=== PATIENT | female | born 1995 | race Caucasian/White ===

== ENCOUNTER 2017-10-19 05:36 | Observation (INO) | payer OTHER ==
[2017-10-19] VITALS (7 sets, daily range): BP systolic 112–134; BP diastolic 72–84; PULSE 61–99; TEMP 36.5–36.9; O2SAT 90–100; Ht 154.9 cm; Wt 63.6 kg
[~2017-10-19] VITALS: Ht 154.9 cm; Wt 63.6 kg
[2017-10-19] MEDS ORDERED: ONDANSETRON INJ 2 MG/ML 2 ML VIAL IV STA ×2 (06:05→07:42)
[2017-10-19] MEDS ORDERED: SODIUM CHLORIDE 0.9% 1000ML 1,000 ML IV ONE (06:15)
[2017-10-19] MEDS ORDERED: MoRPHine SULFATE 4 MG/ML 1 ML CARP\\VIAL IV ONE (06:15)
[2017-10-19 06:16] LABS: BASO % 0.1 %; BASO ABS # 0.01 K/uL (0-0.2); EOS % 1.5 %; HEMATOCRIT 43.5 % (37-47); HEMOGLOBIN 14.8 g/dL (12.0-16.0); IG# 0.01 K/uL (0.00-0.02); LYMPH % 49.5 %; LYMPH ABS # 3.35 K/uL (1.2-3.4); MEAN CELL VOLUME 82.4 fL (80-100); MEAN PLATELET VOLUME 10.3 fL (7.4-10.4); MONO % 5.2 %; MONO ABS # 0.35 K/uL (0.11-0.59); NEUT % 43.6 %; NEUT ABS # 2.95 K/uL (1.4-6.5); PLATELET COUNT 208 K/uL (130-400); RED CELL DISTRIBUTION WIDTH CV 12.8 % (11.5-14.5); RED CELL DISTRIBUTION WIDTH SD 38.4 fL (36.4-46.3); WHITE BLOOD COUNT 6.77 K/uL (4.8-10.8)
[2017-10-19] MEDS ORDERED: OPTIRAY 320 IV PRN (06:30)
[2017-10-19 06:33] LABS: ALBUMIN 3.9 gm/dl (3.4-5.0); CALCIUM 9.6 mg/dl (8.5-10.1); CREATININE 0.73 mg/dl (0.60-1.20); POTASSIUM 3.5 mmol/L (3.5-5.1)
[2017-10-19] MEDS ORDERED: BCPILLS PO (06:33)
--- NOTE | 2017-10-19 07:06 | DIAGNOSTIC IMAGING REPORT ---
PELVIC COMPLETE NON OB CLINICAL HISTORY: 21 years-old Female presenting with RLQ abd pain. Not sexually active. Trans abd please. . TECHNIQUE: Real-time grayscale and color and spectral Doppler ultrasound imaging of the pelvis was performed using a transabdominal probe. COMPARISON: None. FINDINGS: Uterus: Normal. Anteverted. The uterus measures 8.1 x 2.6 x 3.7 cm. Endometrial stripe measures 5 mm in thickness. Endometrium normal-appearing. Cervix normal. Right adnexa: Right ovary normal. Right ovary measures 2.6 x 1.4 x 1.8 cm. Normal color Doppler flow and arterial and venous waveforms within the ovarian parenchyma. Left adnexa: Left ovary normal. Left ovary measures 2.9 x 1.6 x 2.1 cm. Normal color Doppler flow and arterial and venous waveforms within the ovarian parenchyma. Other: No free fluid. IMPRESSION: No significant abnormality identified within the pelvis. No evidence of ovarian torsion. Electronically signed by: Tim Mathew M.D. 10/19/2017 7:05 AM Dictated Date/Time: 10/19/2017 7:04 AM
--- NOTE | 2017-10-19 09:37 | DIAGNOSTIC IMAGING REPORT ---
CT ABD/PELVIS IV AND ORAL CONT CLINICAL HISTORY: Right lower quadrant abdominal pain. Nausea. COMPARISON STUDY: None. TECHNIQUE: Following the IV administration of 94 mL of Optiray-320, CT scan of the abdomen and pelvis was performed from the lung bases to the proximal femurs. Images are reviewed in the axial, sagittal, and coronal planes. IV contrast was administered without complication. A dose lowering technique was utilized adhering to the principles of ALARA. CT DOSE: 312.27 mGy.cm FINDINGS: Lower chest: The heart is normal in size and configuration, without pericardial effusion. The lung bases and pleural spaces are clear. Liver: The contrast-enhanced liver is normal in size, contour, and attenuation. There is no intrahepatic biliary ductal dilatation. The hepatic veins and portal veins are patent. Gallbladder: Unremarkable. Spleen: Normal in size and attenuation. Pancreas: Unremarkable. Adrenal glands: Unremarkable. Kidneys: There is a 17 mm left renal cyst. Bowel: There are no transition zones indicate bowel obstruction. There is no evidence of acute diverticulitis. The appendix is mildly dilated measuring 8 mm. The appendix however is filled with both air and contrast and is therefore felt to be normal. Peritoneum: There is no intraperitoneal free air or abdominal ascites. Vasculature: The abdominal aorta is normal in course and caliber. Adenopathy: Minimally prominent ileocolic lymph nodes, likely reactive Pelvic viscera: The bladder, and pelvic viscera are unremarkable. Skeletal structures: No destructive osseous lesions are seen. IMPRESSION: 1. No evidence of bowel obstruction. No evidence of free air 2. The appendix although mildly enlarged demonstrates areas and contrast within the lumen. The appendix is therefore felt to be normal. 3. Minimally prominent ileocolic lymph nodes likely reactive Electronically signed by: Wilbert Ochoa M.D. 10/19/2017 9:35 AM Dictated Date/Time: 10/19/2017 9:18 AM
[2017-10-19] MEDS: SODIUM CHLORIDE 0.9% 1000ML 1,000 ML IV SCH ×2 (10:41→18:17)
[2017-10-19] MEDS ORDERED: MoRPHine SULFATE 2 MG/ML CARP IV PRN ×2 (10:45)
[2017-10-19] MEDS ORDERED: MoRPHine SULFATE 4 MG/ML 1 ML CARP\\VIAL IV PRN (10:45)
[2017-10-19] MEDS ORDERED: IV FLUIDS COMPLETED PRN (11:00)
[2017-10-19] MEDS ORDERED: CEFOXITIN IV 2,000 MG in DEXTROSE 5% 50ML 50 ML IV SCH (11:15)
--- NOTE | 2017-10-19 11:15 | History and Physical ---
History & Physical Date & Time of Service: Oct 19, 2017 at 10:45 Chief Complaint: Abd Pain Rlq Primary Care Physician: No Doctor, Assigned History of Present Illness Source: patient Myriam is a pleasant 21 year-old [employer] student who presented to emergency room this morning with complaint of sudden abdominal pain that woke her up last night. Pain began around the umbilicus and then radiated down to the right side. Sharp/stabbing pain in nature. States she has dull aching pain in the right abdomen all week but would come and go. Associated nausea this morning but no vomiting. No changes in bowel habits, diarrhea, constipation, or blood in stools. Denies fever, chest pain, shortness of breath, difficulty breathing , difficulty urinating, dysuria, urinary frequency, blood in urine, abnormal vaginal bleeding or discharge. Does not get menstrual periods with control pills. Work up in the ER showed no leukocytosis. Pelvic ultrasound showed no abnormalities. CT scan with oral contrast showed mildly dilated appendix at 8 mm however contrast and air seen in appendix which is considered normal. Past Medical/Surgical History No significant past medical history Surgical History: [place] teeth extraction Social History Smoking Status: Never Smoker Allergies Coded Allergies: No Known Allergies (Unverified , 10/19/17) Home Medications Scheduled Control Pills ( Control Pills), 1 TAB PO DAILY Review of Systems Constitutional: + chills, + sweats, No fever Respiratory: No shortness of breath, No dyspnea on exertion Cardiovascular: No chest pain Abdomen: + pain, + nausea, No vomiting, No diarrhea Genitourinary - Female: No dysuria, No urinary frequency, No urinary urgency, No urinary incontinence, No urinary retention, No hematuria Hematologic / Lymphatic: No abnormal bleeding/bruising Integumentary: No rash Physical Exam Vital Signs Date Time Temp Pulse Resp B/P (MAP) Pulse Ox O2 Delivery O2 Flow Rate FiO2 10/19/17 09:56 82 18 128/60 100 Room Air 10/19/17 08:37 84 18 130/64 99 Room Air 10/19/17 07:08 81 18 147/90 98 Room Air 10/19/17 05:48 36.7 100 18 145/93 97 Room Air General Appearance: WD/WN, no apparent distress Eyes: sclerae normal ENT: hearing grossly normal Neck: trachea midline Respiratory/Chest: lungs clear, normal breath sounds, no respiratory distress, no accessory muscle use Cardiovascular: regular rate, rhythm, no murmur Abdomen/GI: soft, no organomegaly, no pulsatile mass, + tenderness (RLQ on deep palpation, no rigidity or peritonitis) Back: normal inspection Extremities/Musculoskelatal: normal inspection Neurologic/Psych: alert, normal mood/affect, oriented x 3 Skin: normal color, warm/dry, no rash Diagnostics Laboratory Results Results Past 24 Hours Test 10/19/17 05:55 10/19/17 06:00 Range/Units Urine Color YELLOW Urine Appearance TURBID CLEAR Urine pH 6.0 4.5-7.5 Urine Specific [place] 1.025 1.000-1.030 Urine Protein NEG NEG Urine Glucose (UA) NEG NEG Urine Ketones NEG NEG Urine Occult Blood TRACE NEG Urine Nitrite NEG NEG Urine Bilirubin NEG NEG Urine Urobilinogen NEG NEG Urine Leukocyte Esterase LARGE NEG Urine WBC (Auto) >30 0-5 /hpf Urine RBC (Auto) 5-10 0-4 /hpf Urine Hyaline Casts (Auto) 1-5 0-5 /lpf Urine Epithelial Cells (Auto) >30 0-5 /lpf Urine Bacteria (Auto) 4+ NEG Urine Pathogenic Casts 0 /lpf Urine Yeast (Auto) NONE PRSENT Urine Test NEG NEG White Blood Count 6.77 4.8-10.8 K/uL Red Blood Count 5.28 4.2-5.4 M/uL Hemoglobin 14.8 12.0-16.0 g/dL Hematocrit 43.5 37-47 % Mean Corpuscular Volume 82.4 80-100 fL Mean Corpuscular Hemoglobin 28.0 25-34 pg Mean Corpuscular Hemoglobin Concent 34.0 32-36 g/dl Platelet Count 208 130-400 K/uL Mean Platelet Volume 10.3 7.4-10.4 fL Neutrophils (%) (Auto) 43.6 % Lymphocytes (%) (Auto) 49.5 % Monocytes (%) (Auto) 5.2 % Eosinophils (%) (Auto) 1.5 % Basophils (%) (Auto) 0.1 % Neutrophils # (Auto) 2.95 1.4-6.5 K/uL Lymphocytes # (Auto) 3.35 1.2-3.4 K/uL Monocytes # (Auto) 0.35 0.11-0.59 K/uL Eosinophils # (Auto) 0.10 0-0.5 K/uL Basophils # (Auto) 0.01 0-0.2 K/uL RDW Standard Deviation 38.4 36.4-46.3 fL RDW Coefficient of Variation 12.8 11.5-14.5 % Immature Granulocyte % (Auto) 0.1 % Immature Granulocyte # (Auto) 0.01 0.00-0.02 K/uL Sodium Level 139 136-145 mmol/L Potassium Level 3.5 3.5-5.1 mmol/L Chloride Level 107 98-107 mmol/L Carbon Dioxide Level 25 21-32 mmol/L Anion Gap 7.0 3-11 mmol/L Blood Urea Nitrogen 12 7-18 mg/dl Creatinine 0.73 0.60-1.20 mg/dl Est Creatinine Clear Calc Drug Dose 105.6 ml/min Estimated GFR () 136.5 Estimated GFR (Non- 117.7 BUN/Creatinine Ratio 16.5 10-20 Random Glucose 97 70-99 mg/dl Calcium Level 9.6 8.5-10.1 mg/dl Total Bilirubin 0.2 0.2-1 mg/dl Aspartate Amino Transf (AST/SGOT) 12 15-37 U/L Alanine Aminotransferase (ALT/SGPT) 25 12-78 U/L Alkaline Phosphatase 57 45-117 U/L Total Protein 8.0 6.4-8.2 gm/dl Albumin 3.9 3.4-5.0 gm/dl Globulin 4.1 2.5-4.0 gm/dl Albumin/Globulin Ratio 1.0 0.9-2 Lipase 178 73-393 U/L Microbiology Results 10/19/17 Urine Culture, Received Pending Diagnostic Radiology PELVIC COMPLETE NON OB CLINICAL HISTORY: 21 years-old Female presenting with RLQ abd pain. Not sexually active. Trans abd please. . TECHNIQUE: Real-time grayscale and color and spectral Doppler ultrasound imaging of the pelvis was performed using a transabdominal probe. COMPARISON: None. FINDINGS: Uterus: Normal. Anteverted. The uterus measures 8.1 x 2.6 x 3.7 cm. Endometrial stripe measures 5 mm in thickness. Endometrium normal-appearing. Cervix normal. Right adnexa: Right ovary normal. Right ovary measures 2.6 x 1.4 x 1.8 cm. Normal color Doppler flow and arterial and venous waveforms within the ovarian parenchyma. Left adnexa: Left ovary normal. Left ovary measures 2.9 x 1.6 x 2.1 cm. Normal color Doppler flow and arterial and venous waveforms within the ovarian parenchyma. Other: No free fluid. IMPRESSION: No significant abnormality identified within the pelvis. No evidence of ovarian torsion. CT ABD/PELVIS IV AND ORAL CONT CLINICAL HISTORY: Right lower quadrant abdominal pain. Nausea. COMPARISON STUDY: None. TECHNIQUE: Following the IV administration of 94 mL of Optiray-320, CT scan of the abdomen and pelvis was performed from the lung bases to the proximal femurs. Images are reviewed in the axial, sagittal, and coronal planes. IV contrast was administered without complication. A dose lowering technique was utilized adhering to the principles of ALARA. CT DOSE: 312.27 mGy.cm FINDINGS: Lower chest: The heart is normal in size and configuration, without pericardial effusion. The lung bases and pleural spaces are clear. Liver: The contrast-enhanced liver is normal in size, contour, and attenuation. There is no intrahepatic biliary ductal dilatation. The hepatic veins and portal veins are patent. Gallbladder: Unremarkable. Spleen: Normal in size and attenuation. Pancreas: Unremarkable. Adrenal glands: Unremarkable. Kidneys: There is a 17 mm left renal cyst. Bowel: There are no transition zones indicate bowel obstruction. There is no evidence of acute diverticulitis. The appendix is mildly dilated measuring 8 mm. The appendix however is filled with both air and contrast and is therefore felt to be normal. Peritoneum: There is no intraperitoneal free air or abdominal ascites. Vasculature: The abdominal aorta is normal in course and caliber. Adenopathy: Minimally prominent ileocolic lymph nodes, likely reactive Pelvic viscera: The bladder, and pelvic viscera are unremarkable. Skeletal structures: No destructive osseous lesions are seen. IMPRESSION: 1. No evidence of bowel obstruction. No evidence of free air 2. The appendix although mildly enlarged demonstrates areas and contrast within the lumen. The appendix is therefore felt to be normal. 3. Minimally prominent ileocolic lymph nodes likely reactive Impression Assessment and Plan 21 year-old female with complaint of abdominal pain that suddenly woke her up last night around the umbilicus with radiation to the RLQ with associated nausea. Mild right sided abdominal pain that would come and go for the past week. CT scan showing dilated appendix at 8 mm. No leukocytosis. Pelvic ultrasound unremarkable. Abdominal examination proves RLQ tenderness on palpation no peritonitis. Examination and history consistent with early acute appendicitis. Plan: Plan to admit patient for observation and then laparoscopic appendectomy this afternoon. Informed patient of procedure and risks, informed consent obtained. IV fluids, NPO, IV pain medication and Zofran as needed Will be given 2gms Cefoxitin pre-operatively Dr. Ramon has seen and examined patient, agrees with above VTE Prophylaxis VTE Risk Assessment Done? Y/N: Yes Risk Level: Low
[2017-10-19] MEDS ORDERED: FENTANYL CITRATE INJ 50 MCG/1 ML 2 ML VIAL ONE ×4 (13:56→16:19)
[2017-10-19] MEDS ORDERED: MIDAZOLAM HCL 1 MG/ML 2ML VIAL ONE (13:56)
[2017-10-19] MEDS ORDERED: ONDANSETRON INJ 2 MG/ML 2 ML VIAL ONE (14:42)
[2017-10-19] MEDS ORDERED: PROPOFOL IV EMULSION 10 MG/ML 20 ML VIAL IV ONE (14:42)
[2017-10-19] MEDS ORDERED: LIDOCAINE HCL 2% 2 ML VIAL (20MG/ML) ONE (14:42)
[2017-10-19] MEDS ORDERED: BUPIVACAINE 0.5 % 5 MG/1 ML MPF 30ML VIAL ONE (14:51)
[2017-10-19] MEDS ORDERED: BACITRACIN OINT 15 GM TUBE ONE (14:52)
--- NOTE | 2017-10-19 14:52 | History & Physical Bridge Note ---
H&P Re-Evaluation Bridge Note: I have examined the patient, reviewed the History & Physical and in the interval since the performance of the History & Physical I have noted the following changes of clinical significance: No changes noted
[2017-10-19] MEDS ORDERED: ACETAMINOPHEN 1000 MG/100 ML IV IV ONE (15:01)
[2017-10-19] MEDS ORDERED: LIDOCAINE HCL 1% 20 ML VIAL ONE (15:08)
[2017-10-19] MEDS ORDERED: PROMETHAZINE HCL INJ 12.5 MG in SODIUM CHLORIDE 0.9% 50ML 50 ML IV PRN (15:30)
[2017-10-19] MEDS ORDERED: HYDROmorphone INJ 0.5 MG/0.5 ML SYR IV PRN (15:30)
[2017-10-19] MEDS ORDERED: EpHEDrine SULFATE INJ 50 MG/ML AMP IV PRN (15:30)
[2017-10-19] MEDS ORDERED: ATROPINE SULFATE 0.1 MG/ML 5ML SYR IV PRN (15:30)
[2017-10-19] MEDS ORDERED: ONDANSETRON INJ 2 MG/ML 2 ML VIAL IV PRN (15:30)
[2017-10-19] MEDS ORDERED: DEXAMETHASONE SOD INJ 4 MG/ML VIAL ONE (15:35)
[2017-10-19] MEDS ORDERED: NEOSTIGMINE METHYLSULFATE 5 MG/5 ML SYR ONE (15:58)
[2017-10-19] MEDS ORDERED: PHENYLEPHRINE 100MCG/ML 5ML SYR ONE (15:58)
[2017-10-19] MEDS ORDERED: GLYCOPYRROLATE INJ 0.2 MG/ML VIAL ONE (15:58)
--- NOTE | 2017-10-19 16:16 | [facility] Post Operative Brief Note ---
Immediate Operative Summary Operative Date Oct 19, 2017. Pre-Operative Diagnosis acute appendicitis Post-Operative Diagnosis SAME Procedure(s) Performed laparoscopic appendectomy Surgeon Dr. Sarah Ramon Site Acquisition Specialist Surgeon(s) pyrotechnics press tender Estimated Blood Loss 5ML Findings Consistent with Post-Op Diagnosis acute appendicitis Fluids (cc crystalloids) 1000ml Specimens A. appendix (permanent) Drains None Anesthesia Type General Complication(s) none Disposition Accompanied Pt To Recover: yes Disposition: Recovery Room / PACU
[2017-10-19] MEDS: FENTANYL CITRATE INJ 50 MCG/1 ML 2 ML VIAL IV PRN ×3 (16:37→16:47)
--- NOTE | 2017-10-19 16:40 | EMERGENCY ROOM VISIT NOTE ---
ED Visit Note First contact with patient: 07:41 Emergency Department Note Ms. Worthy's care was transferred to ut by Mr. Tomas Vargas PA-C at the end of his shift pending a pelvic ultrasound and abdominal CT results. In summary patient had an acute onset of right lower quadrant pain. All her laboratory testing was returned and she had a normal CBC, CMP, lipase and a negative test. Her urinalysis showed a large amount of leukoesterase , blood, white blood cells, epithelial cells and 4+ bacteria. On my initial evaluation of the patient she reports her pain was under control and rated her discomfort 4/10. She was offered pain medications and refused. On her physical examination she had mild tenderness in the periumbilical area and the upper lateral border of the right lower quadrant. There was no tenderness or guarding over McBurney's point. ED Course: Patient is assessed as noted above. Laboratory Testing: Test 10/19/17 05:55 10/19/17 06:00 Range/Units Urine Color YELLOW Urine Appearance TURBID CLEAR Urine pH 6.0 4.5-7.5 Urine Specific [place] 1.025 1.000-1.030 Urine Protein NEG NEG Urine Glucose (UA) NEG NEG Urine Ketones NEG NEG Urine Occult Blood TRACE NEG Urine Nitrite NEG NEG Urine Bilirubin NEG NEG Urine Urobilinogen NEG NEG Urine Leukocyte Esterase LARGE NEG Urine WBC (Auto) >30 0-5 /hpf Urine RBC (Auto) 5-10 0-4 /hpf Urine Hyaline Casts (Auto) 1-5 0-5 /lpf Urine Epithelial Cells (Auto) >30 0-5 /lpf Urine Bacteria (Auto) 4+ NEG Urine Pathogenic Casts 0 /lpf Urine Yeast (Auto) NONE PRSENT Urine Test NEG NEG White Blood Count 6.77 4.8-10.8 K/uL Red Blood Count 5.28 4.2-5.4 M/uL Hemoglobin 14.8 12.0-16.0 g/dL Hematocrit 43.5 37-47 % Mean Corpuscular Volume 82.4 80-100 fL Mean Corpuscular Hemoglobin 28.0 25-34 pg Mean Corpuscular Hemoglobin Concent 34.0 32-36 g/dl Platelet Count 208 130-400 K/uL Mean Platelet Volume 10.3 7.4-10.4 fL Neutrophils (%) (Auto) 43.6 % Lymphocytes (%) (Auto) 49.5 % Monocytes (%) (Auto) 5.2 % Eosinophils (%) (Auto) 1.5 % Basophils (%) (Auto) 0.1 % Neutrophils # (Auto) 2.95 1.4-6.5 K/uL Lymphocytes # (Auto) 3.35 1.2-3.4 K/uL Monocytes # (Auto) 0.35 0.11-0.59 K/uL Eosinophils # (Auto) 0.10 0-0.5 K/uL Basophils # (Auto) 0.01 0-0.2 K/uL RDW Standard Deviation 38.4 36.4-46.3 fL RDW Coefficient of Variation 12.8 11.5-14.5 % Immature Granulocyte % (Auto) 0.1 % Immature Granulocyte # (Auto) 0.01 0.00-0.02 K/uL Sodium Level 139 136-145 mmol/L Potassium Level 3.5 3.5-5.1 mmol/L Chloride Level 107 98-107 mmol/L Carbon Dioxide Level 25 21-32 mmol/L Anion Gap 7.0 3-11 mmol/L Blood Urea Nitrogen 12 7-18 mg/dl Creatinine 0.73 0.60-1.20 mg/dl Est Creatinine Clear Calc Drug Dose 105.6 ml/min Estimated GFR () 136.5 Estimated GFR (Non- 117.7 BUN/Creatinine Ratio 16.5 10-20 Random Glucose 97 70-99 mg/dl Calcium Level 9.6 8.5-10.1 mg/dl Total Bilirubin 0.2 0.2-1 mg/dl Aspartate Amino Transf (AST/SGOT) 12 15-37 U/L Alanine Aminotransferase (ALT/SGPT) 25 12-78 U/L Alkaline Phosphatase 57 45-117 U/L Total Protein 8.0 6.4-8.2 gm/dl Albumin 3.9 3.4-5.0 gm/dl Globulin 4.1 2.5-4.0 gm/dl Albumin/Globulin Ratio 1.0 0.9-2 Lipase 178 73-393 U/L Microbiology Results 10/19/17 Urine Culture: Pending Pelvic Ultrasound: Was reviewed by myself and read by the radiologist showing no significant abnormalities within the pelvis. No evidence of ovarian torsion or ovarian cyst rupture. Contrast Abdominal/Pelvic CT: Was reviewed by myself and read by the radiologist showing no evidence of bowel obstruction or free air. The appendix although mildly enlarge demonstrates contrast with thin the lumen and was felt to be normal-appearing by the radiologist. Also noted was mildly prominent ileocolic lymph nodes that were felt to be reactive. During my care of the patient she was still drinking her contrast for her CT and reported that she was becoming more nauseated and she was given 4 mg of Zofran IV. Once again she was offered pain medications and refused. Patient's case was reviewed with general surgery, Marissa Patel PA-C; she independently assessed the patient, reviewed the case with her attending surgeon , Dr. Ramon, and felt that she should have an appendectomy. Patient was informed of this recommendation and accepted the recommendation. Clinical Impression: Acute appendicitis. Disposition and Plan: Patient be taken to the surgical suite for an appendectomy ; please see Dr. Ramon's orders for continued care and treatment.
--- NOTE | 2017-10-19 17:01 | Anesthesiology Progress Note ---
Anesthesia Post Op Note Date & Time Oct 19, 2017 at 17:01 Vital Signs Pain Intensity: 3 Vital Signs Past 12 Hours Date Time Temp Pulse Resp B/P (MAP) Pulse Ox O2 Delivery O2 Flow Rate FiO2 10/19/17 16:57 36.5 10/19/17 16:56 119/97 10/19/17 16:55 79 15 10/19/17 16:55 77 15 100 10/19/17 16:51 139/96 10/19/17 16:50 86 13 10/19/17 16:50 86 13 100 10/19/17 16:46 136/93 10/19/17 16:45 78 16 100 10/19/17 16:45 79 16 10/19/17 16:41 129/83 10/19/17 16:40 84 20 10/19/17 16:40 85 20 100 10/19/17 16:36 146/90 10/19/17 16:35 97 13 99 10/19/17 16:35 96 13 10/19/17 16:31 137/99 10/19/17 16:30 108 15 99 10/19/17 16:30 108 15 10/19/17 16:29 143/91 10/19/17 16:20 36.1 102 14 125/87 100 Oxymask 7 10/19/17 11:57 36.8 61 16 114/81 90 Room Air 10/19/17 11:45 89 16 115/74 99 10/19/17 11:14 89 16 115/74 99 Room Air 10/19/17 09:56 82 18 128/60 100 Room Air 10/19/17 08:37 84 18 130/64 99 Room Air 10/19/17 07:08 81 18 147/90 98 Room Air 10/19/17 05:48 36.7 100 18 145/93 97 Room Air Notes Mental Status: alert / awake / arousable, participated in evaluation Pt Amnestic to Procedure: Yes Nausea / Vomiting: adequately controlled Pain: adequately controlled Airway Patency, RR, SpO2: stable & adequate BP & HR: stable & adequate Hydration State: stable & adequate Anesthetic Complications: no major complications apparent
[2017-10-19] MEDS ORDERED: NURSING VERBAL MED ORDER ONE (18:30)
[2017-10-19] MEDS: TRAMADOL HCL 50 MG TAB PO PRN (19:49)
--- NOTE | 2017-10-19 20:03 | OPERATIVE REPORT ---
DATE OF OPERATION: 10/19/2017 PREOPERATIVE DIAGNOSIS: Acute appendicitis. POSTOPERATIVE DIAGNOSIS: Same. PROCEDURE: Laparoscopic appendectomy. SURGEON: Jadyn Ramon MD. ANESTHESIA: General. ESTIMATED BLOOD LOSS: About 5 mL. FINDINGS: Acute appendicitis. COMPLICATIONS: None. INDICATIONS FOR THE PROCEDURE: This is a 21-year-old female who presented to the ED with right lower quadrant pain. The patient had a CT scan diagnosed of acute appendicitis. The patient will be required to do laparoscopic appendectomy, possible open. I did talk to the patient about the benefit and risk, alternate procedure. I indicated the risks may include but not limited such as bleeding, infection, abscess, injury to bowel. The patient understands. She signed informed consent and I answered all questions. DETAILS OF PROCEDURE: We brought the patient to the OR, put the patient on the supine position on the OR table. The patient received SCD on bilateral legs to prevent DVT. Also, the patient received 2 gram cefoxitin IV for prophylactic antibiotic. The patient received general anesthesia without difficulty. The abdomen was prepped and draped in routine sterile fashion. After a timeout, I injected local anesthesia by using 1% lidocaine mixed with 0.5% Marcaine just above umbilicus. I made a small incision just above umbilicus, opened fascia and opened peritoneum under direct vision. I put a Sean trocar in, connected to CO2 to create pneumoperitoneum. Flow rate at 6 liter per minute. Pressure not more than 14 mmHg. Once we got a nice pneumoperitoneum, we put the camera in to look around, the abdomen showed normal findings on the stomach, small bowel, large bowel; however, the appendix showed slight enlarged appendix with some inflammation on the appendix, conformed diagnosis of acute appendicitis. Then I put another two 5 mm trocar on the left lower quadrant area and mobilized the appendix, taken down the appendiceal by using harmonic. Rechecked, no active bleeding. Then I used Endo-KYRA staple to transect the base of the appendix, rechecked no active bleeding, no leak. Then I removed the appendix specimen through the catcher bag. Then we reinserted Sean trocar in connected to CO2 to create pneumoperitoneum again to look around the abdomen, no active bleeding, no leak from the staple line and we removed all trocars under direct vision. No active bleeding from trocar sites. The pneumoperitoneum was released. Then I closed the umbilical incision, fascial layer by using #1 Vicryl [id number] x2, closed subcutaneous layer by using 2-0 Vicryl, closed skin by using 4-0 Vicryl continuous running. Closed another two 5 mm trocar site skin only by using 4-0 Vicryl. Then we put the dressing on. The patient tolerated the procedure well. All the instrument, needle and sponge count correct x2 at the end of case. The patient transferred to recovery room in stable condition. After procedure, I did talk to the patient's mom about the OR finding and procedure we did. She understands. I attest to the content of the Intraoperative Record and any orders documented therein. Any exceptions are noted below. CODY
[2017-10-19] MEDS: ONDANSETRON INJ 2 MG/ML 2 ML VIAL IV PRN (20:25)
[2017-10-19] MEDS: OXYCODONE/ACETAMINOPHEN 5-325 TAB PO PRN (23:33)
[2017-10-20] MEDS: TRAMADOL HCL 50 MG TAB PO PRN ×2 (02:21→10:41)
[2017-10-20 03:42] VITALS: BP 102/66; PULSE 82; TEMP 36.7; O2SAT 95
[2017-10-20] MEDS: SODIUM CHLORIDE 0.9% 1000ML 1,000 ML IV SCH (04:45)
[2017-10-20] MEDS: OXYCODONE/ACETAMINOPHEN 5-325 TAB PO PRN ×2 (05:01→14:01)
[2017-10-20] MEDS ORDERED: CEFOXITIN SOD 2 GM VIAL IV ONE (06:00)
--- NOTE | 2017-10-20 07:32 | EMERGENCY ROOM VISIT NOTE ---
History First contact with patient: 05:50 Chief Complaint: ABDOMINAL PAIN Stated Complaint: ACUTE APPENDICITIS Nursing Triage Summary: Patient reports that she has had abdominal pain all week, woke up this morning with right sided abdominal pain. Patient notes nausea as well. History of Present Illness The patient is a 21 year old female who presents to the Emergency Room with complaints of right lower quadrant abdominal pain for the past several hours. The patient has had vague abdominal pain for the past several days, but it worsened tonight. The patient does not have fever or chills. She is usually healthy. She does not have chest pain, chest tightness, or shortness of breath. She is not sexually active and is not reporting vaginal pain or irritation. The patient does take control and does not get menses. She rates her discomfort a 6/10 that worsens with pressing in the area. Her last meal was about 9 hours ago. Review of Systems More than 10 systems were reviewed and otherwise negative with the exception of history of present illness. Past Medical/Surgical History Medical Problems: (1) Acute appendicitis Family History No pertinent family history Social History Smoking Status: Never Smoker Current/Historical Medications Scheduled Control Pills ( Control Pills), 1 TAB PO DAILY Physical Exam Vital Signs Date Time Temp Pulse Resp B/P (MAP) Pulse Ox O2 Delivery O2 Flow Rate FiO2 10/19/17 09:56 82 18 128/60 100 Room Air 10/19/17 08:37 84 18 130/64 99 Room Air 10/19/17 07:08 81 18 147/90 98 Room Air 10/19/17 05:48 36.7 100 18 145/93 97 Room Air Physical Exam VITALS: Vitals are noted on the nurse's note and reviewed by myself. Vital signs stable. GENERAL: Well-developed, well-nourished, white male, who is in no acute distress and resting comfortably. Patient is cooperative with the examination. NECK: Supple without nuchal rigidity. No lymphadenopathy. No thyromegaly. Cervical spine is nontender. HEART: Regular rate and rhythm without murmurs gallops or rubs. LUNGS: Clear to auscultation bilaterally without wheezes, rales or rhonchi. No retractions or accessory muscle use. ABDOMEN: Positive normal bowel sounds x 4. Soft with positive right lower quadrant tenderness on palpation. No rebound or guarding. No obturator or psoas. MUSCULOSKELETAL: No muscle atrophy, erythema, or edema noted. Full range of motion without joint tenderness in all extremities. Medical Decision & Procedures Laboratory Results 10/19/17 06:00 Red Blood Count 5.28, Mean Corpuscular Volume 82.4, Mean Corpuscular Hemoglobin 28.0, Mean Corpuscular Hemoglobin Concent 34.0, Mean Platelet Volume 10.3, Neutrophils (%) (Auto) 43.6, Lymphocytes (%) (Auto) 49.5, Monocytes (%) (Auto) 5.2, Eosinophils (%) (Auto) 1.5, Basophils (%) (Auto) 0.1, Neutrophils # (Auto) 2.95, Lymphocytes # (Auto) 3.35, Monocytes # (Auto) 0.35, Eosinophils # (Auto) 0.10, Basophils # (Auto) 0.01 10/19/17 06:00 Test 10/19/17 05:55 10/19/17 06:00 Urine Color YELLOW Urine Appearance TURBID (CLEAR) Urine pH 6.0 (4.5-7.5) Urine Specific [place] 1.025 (1.000-1.030) Urine Protein NEG (NEG) Urine Glucose (UA) NEG (NEG) Urine Ketones NEG (NEG) Urine Occult Blood TRACE (NEG) Urine Nitrite NEG (NEG) Urine Bilirubin NEG (NEG) Urine Urobilinogen NEG (NEG) Urine Leukocyte Esterase LARGE (NEG) Urine WBC (Auto) >30 /hpf (0-5) Urine RBC (Auto) 5-10 /hpf (0-4) Urine Hyaline Casts (Auto) 1-5 /lpf (0-5) Urine Epithelial Cells (Auto) >30 /lpf (0-5) Urine Bacteria (Auto) 4+ (NEG) Urine Pathogenic Casts /lpf (0) Urine Yeast (Auto) (NONE PRSENT) Urine Test NEG (NEG) White Blood Count 6.77 K/uL (4.8-10.8) Red Blood Count 5.28 M/uL (4.2-5.4) Hemoglobin 14.8 g/dL (12.0-16.0) Hematocrit 43.5 % (37-47) Mean Corpuscular Volume 82.4 fL (80-100) Mean Corpuscular Hemoglobin 28.0 pg (25-34) Mean Corpuscular Hemoglobin Concent 34.0 g/dl (32-36) Platelet Count 208 K/uL (130-400) Mean Platelet Volume 10.3 fL (7.4-10.4) Neutrophils (%) (Auto) 43.6 % Lymphocytes (%) (Auto) 49.5 % Monocytes (%) (Auto) 5.2 % Eosinophils (%) (Auto) 1.5 % Basophils (%) (Auto) 0.1 % Neutrophils # (Auto) 2.95 K/uL (1.4-6.5) Lymphocytes # (Auto) 3.35 K/uL (1.2-3.4) Monocytes # (Auto) 0.35 K/uL (0.11-0.59) Eosinophils # (Auto) 0.10 K/uL (0-0.5) Basophils # (Auto) 0.01 K/uL (0-0.2) RDW Standard Deviation 38.4 fL (36.4-46.3) RDW Coefficient of Variation 12.8 % (11.5-14.5) Immature Granulocyte % (Auto) 0.1 % Immature Granulocyte # (Auto) 0.01 K/uL (0.00-0.02) Anion Gap 7.0 mmol/L (3-11) Est Creatinine Clear Calc Drug Dose 105.6 ml/min Estimated GFR () 136.5 Estimated GFR (Non- 117.7 BUN/Creatinine Ratio 16.5 (10-20) Calcium Level 9.6 mg/dl (8.5-10.1) Total Bilirubin 0.2 mg/dl (0.2-1) Aspartate Amino Transf (AST/SGOT) 12 U/L (15-37) Alanine Aminotransferase (ALT/SGPT) 25 U/L (12-78) Alkaline Phosphatase 57 U/L (45-117) Total Protein 8.0 gm/dl (6.4-8.2) Albumin 3.9 gm/dl (3.4-5.0) Globulin 4.1 gm/dl (2.5-4.0) Albumin/Globulin Ratio 1.0 (0.9-2) Lipase 178 U/L (73-393) Medications Administered Medications (Trade) Dose Ordered Sig/Buzz Route Start Time Stop Time Status Last Admin Dose Admin Morphine Sulfate (MoRPHine SULFATE INJ) 4 mg NOW ONCE IV 10/19/17 06:15 10/19/17 06:16 DC 10/19/17 06:24 4 MG Ondansetron HCl (Zofran Inj) 4 mg NOW STAT IV 10/19/17 06:05 10/19/17 06:08 DC 10/19/17 06:24 4 MG Sodium Chloride 1,000 ml @ 999 mls/hr Q1H1M ONCE IV 10/19/17 06:15 10/19/17 07:15 DC 10/19/17 06:24 999 MLS/HR Ondansetron HCl (Zofran Inj) 4 mg NOW STAT IV 10/19/17 07:42 10/19/17 07:43 DC 10/19/17 07:48 4 MG Sodium Chloride 1,000 ml @ 100 mls/hr Q10H IV 10/19/17 10:41 11/18/17 10:40 10/20/17 04:45 100 MLS/HR ED Course Physical exam and history were performed. Nursing notes, EMR, and Medication List were personally reviewed. Patient appears to have right lower quadrant abdominal pain for the past several hours. The patient is tender in this area. IV access was established and labs were obtained. Pelvic ultrasound and CT scanning with IV and oral contrast was ordered. The patient remained in stable condition until the time of shift change. The case was discussed with my colleague, Edvin Fernandes PA-C, who will assume care at this time. Results are pending and disposition will be dependent on imaging and blood work findings. Please see Mr. Fernandes's dictation for further patient course, plan, and disposition. The chart was completed utilizing [email or web address] Speech Voice Recognition Software. Grammatical errors, random word insertions, pronoun errors, and incomplete sentences are an occasional consequence of this system due to software limitations, ambient noise, and hardware issues. Any formal questions or concerns about the content, text, or information contained within the body of this dictation should be directly addressed to the provider for clarification. . Medical Decision Differential diagnosis: Etiologies such as [employer] etiology, appendicitis, diverticulitis, PUD, biliary pathology, UTI, pancreatitis, obstruction, mesenteric ischemia, aortic pathology , infections, inflammatory bowel disease, renal colic, as well as others were entertained. Impression Primary Impression: Right lower quadrant abdominal pain Departure Information Dispostion Still a Patient Condition GOOD Referrals No Doctor, Assigned (PCP) Forms HOME CARE DOCUMENTATION FORM, IMPORTANT VISIT INFORMATION Patient Instructions My [facility]
[2017-10-20 07:44] VITALS: BP 107/72; PULSE 60; TEMP 36.6; O2SAT 96
--- NOTE | 2017-10-20 07:54 | Anesthesiology Progress Note ---
Anesthesia Post Op Note Date & Time Oct 20, 2017 at 07:53 Vital Signs Pain Intensity: 7.0 Vital Signs Past 12 Hours Date Time Temp Pulse Resp B/P (MAP) Pulse Ox O2 Delivery O2 Flow Rate FiO2 10/20/17 07:44 36.6 60 16 107/72 (84) 96 Room Air 10/20/17 03:42 36.7 82 16 102/66 (78) 95 Room Air 10/19/17 22:55 36.9 99 16 118/78 (91) 95 Room Air 10/19/17 20:14 36.7 99 18 112/78 (89) 96 Room Air Notes Mental Status: alert / awake / arousable, participated in evaluation Pt Amnestic to Procedure: Yes Nausea / Vomiting: adequately controlled Pain: adequately controlled, improving with treatment Airway Patency, RR, SpO2: stable & adequate BP & HR: stable & adequate Hydration State: stable & adequate Anesthetic Complications: no major complications apparent
[2017-10-20] MEDS: ONDANSETRON INJ 2 MG/ML 2 ML VIAL IV PRN (08:19)
[2017-10-20 10:53] VITALS: BP 110/74; PULSE 56; TEMP 36.8; O2SAT 97
[2017-10-20] MEDS ORDERED: NITR1CAP16 PO (12:28)
[2017-10-20] MEDS ORDERED: OXYC-57 PO (12:28)
[2017-10-20] MEDS ORDERED: ONDA4TAB10 SL (12:28)
--- NOTE | 2017-10-20 12:33 | Discharge Instructions ---
Discharge Instructions Date of Service Oct 20, 2017. Admission Reason for Admission: Acute Appendicitis Discharge Discharge Diagnosis / Problem: same Discharge Goals Goal(s): Decrease discomfort, Improve function Activity Recommendations Activity Limitations: as noted below No heavy lifting over 20 pounds for 3 weeks No strenuous activity until cleared by surgeon No submerging incisions underwater for 2 weeks (no bathing, swimming, or hot tubs) No driving while taking narcotic pain medication or until you are pain free . Instructions / Follow-Up Instructions / Follow-Up You may shower in 3 days. Sponge bath and wash hair in meantime. Try to keep dressings clean and dry. After showering , remove outer dressings. Leave steri strips on incisions for 7 days and then remove. They may fall off on their own that is okay. Walking and light activity is encouraged You will be given prescription for narcotic pain medication (Percocet) as needed for moderate to severe pain. This medication may make you drowsy. You may take extra strength Tylenol or Ibuprofen as needed for mild pain. Take course of antibiotics for UTI, drink plenty of fluids. Follow-up in surgical office in 2 weeks, please call office at [phone] to make an appointment Current Hospital Diet Patient's current hospital diet: Clear Liquid Diet Discharge Diet Recommended Diet: Regular Diet Procedures Procedures Performed: laparoscopic appendectomy Pending Studies Studies pending at discharge: yes List of pending studies: appendix pathology will be reviewed at follow up visit Medical Emergencies . Who to Call and When: Medical Emergencies: If at any time you feel your situation is an emergency, please call 911 immediately. . Non-Emergent Contact Non-Emergency issues call your: Primary Care Provider, Surgeon Call Non-Emergent contact if: you have a fever, temperature is above 101, your pain is not controlled, your pain is worsening, your pain is unusual for you, wound has increased drainage, wound has increased redness, wound has increased pain . "Provider Documentation" section prepared by Marissa Almaraz. . VTE Core Measure Inpt VTE Proph given/why not?: SCD's [place] Drug Monitoring Program Search Results: patient reviewed within database, no issues identified
--- NOTE | 2017-10-20 12:39 | Surgery Progress Note ---
Surgery Progress Note Date of Service Oct 20, 2017. Subjective Post OP Day: 1 (s/p laparoscopic appendectomy) + feeling well, + complaints (moderate pain, controlled with PO Percocet and Tramadol), + ambulating, + pain controlled, + nausea (with percocet), + diet ( tolerated clears, hungry), No chest pain, No SOB, No vomiting Objective Vital Signs: Date Time Temp Pulse Resp B/P (MAP) Pulse Ox O2 Delivery O2 Flow Rate FiO2 10/20/17 10:53 36.8 56 16 110/74 (86) 97 Room Air 10/20/17 07:50 Room Air 10/20/17 07:44 36.6 60 16 107/72 (84) 96 Room Air 10/20/17 03:42 36.7 82 16 102/66 (78) 95 Room Air 10/19/17 22:55 36.9 99 16 118/78 (91) 95 Room Air 10/19/17 20:14 36.7 99 18 112/78 (89) 96 Room Air 10/19/17 19:40 Room Air 10/19/17 19:19 36.6 88 18 121/72 (88) 96 Nasal Cannula 2.5 10/19/17 18:01 36.5 90 18 116/80 (92) 99 Nasal Cannula 2.5 10/19/17 17:36 36.5 81 18 115/77 (90) 100 Nasal Cannula 2.5 10/19/17 17:05 100 Nasal Cannula 3.0 10/19/17 17:05 36.9 98 16 134/84 (101) 100 Nasal Cannula 3.0 10/19/17 16:57 36.5 10/19/17 16:56 119/97 10/19/17 16:55 79 15 10/19/17 16:55 77 15 100 10/19/17 16:51 139/96 10/19/17 16:50 86 13 10/19/17 16:50 86 13 100 10/19/17 16:46 136/93 10/19/17 16:45 78 16 100 10/19/17 16:45 79 16 10/19/17 16:41 129/83 10/19/17 16:40 84 20 10/19/17 16:40 85 20 100 10/19/17 16:36 146/90 10/19/17 16:35 97 13 99 10/19/17 16:35 96 13 10/19/17 16:31 137/99 10/19/17 16:30 108 15 99 10/19/17 16:30 108 15 10/19/17 16:29 143/91 10/19/17 16:20 36.1 102 14 125/87 100 Oxymask 7 General Appearance: WD/WN, no apparent distress Head: normocephalic, atraumatic Neck: trachea midline Respiratory/Chest: lungs clear, normal breath sounds, no respiratory distress, no accessory muscle use Cardiovascular: regular rate, rhythm, no murmur Abdomen: normal bowel sounds, non distended, soft, no organomegaly, no pulsatile mass, + tenderness (at incision sites, appropriate post op) Incision(s): clean, dry (dressings clean and dry, incisions not inspected) Assessment & Plan POD # 1 s/p laparoscopic appendectomy -vitals stable - moderate pain, controlled with PO meds - urinating and ambulating Plan: Discharge home today after lunch Discharge instructions reviewed Rx for PO Percocet prn pain, Zofran prn nausea, and Macrobid x 5 days for UTI ( urine culture pending) Follow up surgical office [address] Ramon you agrees with above
[2017-10-20 13:27] VITALS: BP 110/74; PULSE 56; TEMP 36.8; O2SAT 97
--- NOTE | 2017-10-23 14:49 | Discharge Summary ---
Discharge Summary Dates Admission Date / Time: Oct 19, 2017 at 10:44 Discharge Date: Oct 20, 2017 Dispostion / Condition Discharge Disposition: Home Condition at Discharge: Good Principal Diagnosis (1) RLQ abdominal pain (2) Acute appendicitis (3) UTI (urinary tract infection) Problem List (1) No significant active problems Consultations / Procedures Consultations: None Procedures: Laparoscopic appendectomy Pending Studies / Follow-Up Appendix pathology- will be reviewed at follow up visit Medication Reconciliation New Medications: Nitrofurantoin Monohyd Macro (Macrobid) 100 Mg Cap 1 CAP PO BID for 5 Days, #10 CAP Ondasetron Odt (Zofran Odt) 4 Mg Tab 4 MG SL Q6H PRN for Nausea, #15 TAB Oxycodone/Acetaminophen 5MG/325MG (Percocet 5MG/325MG) Tab 1 TABLET PO Q4H PRN for Pain, #18 TAB Continued Medications: Control Pills ( Control Pills) Tab 1 TAB PO DAILY, TAB Admission HPI Per the Admitting provider: Myriam is a pleasant 21 year-old [employer] student who presented to emergency room this morning with complaint of sudden abdominal pain that woke her up last night. Pain began around the umbilicus and then radiated down to the right side. Sharp/stabbing pain in nature. States she has dull aching pain in the right abdomen all week but would come and go. Associated nausea this morning but no vomiting. No changes in bowel habits, diarrhea, constipation, or blood in stools. Denies fever, chest pain, shortness of breath, difficulty breathing , difficulty urinating, dysuria, urinary frequency, blood in urine, abnormal vaginal bleeding or discharge. Does not get menstrual periods with control pills. Work up in the ER showed no leukocytosis. Pelvic ultrasound showed no abnormalities. CT scan with oral contrast showed mildly dilated appendix at 8 mm however contrast and air seen in appendix which is considered normal. Admission Exam Per the Admitting provider: General Appearance: WD/WN, no apparent distress Eyes: sclerae normal ENT: hearing grossly normal Neck: trachea midline Respiratory/Chest: lungs clear, normal breath sounds, no respiratory distress, no accessory muscle use Cardiovascular: regular rate, rhythm, no murmur Abdomen/GI: soft, no organomegaly, no pulsatile mass, + tenderness (RLQ on deep palpation, no rigidity or peritonitis) Back: normal inspection Extremities/Musculoskelatal: normal inspection Neurologic/Psych: alert, normal mood/affect, oriented x 3 Skin: normal color, warm/dry, no rash Hospital Course (1) Acute appendicitis Patient was taken to operating room for laparoscopic appendectomy by Dr. Ramon. Patient tolerated procedure well and was transferred to recovery in stable condition and then to medical surgical floor for post operative care. Diet was advanced to clear liquids. She was given Po Percocet as needed for pain with breakthrough IV Morphine. IV Zofran as needed for nausea, IV fluids, post op antibiotic course, and activity as tolerated. She was evaluated on POD # 1 in stable condition, vitals stable, afebrile throughout the night, mild nausea with Percocet, pain controlled with po meds, tolerated clear liquids, slightly hungry. Ambulating and urinating without difficulty. Diet was advanced as tolerated and she was discharged home on POD # 1 after lunch in stable condition. (2) RLQ abdominal pain please refer to above (3) UTI (urinary tract infection) She was given dose of Macrobid on discharge PO BID for 5 days. Discharge Instructions as given to patient Copies To Primary Care Provider: No Doctor, Assigned. Problem Qualifiers (1) UTI (urinary tract infection): Urinary tract infection type: acute cystitis Hematuria presence: without hematuria Qualified Codes: N30.00 - Acute cystitis without hematuria
== END 2017-10-20 14:35 | disposition home or self-care (01) ==
LOC: C.EDB 05:38 → C.MSW 10:44 → ENRESERV 11:04
PROVIDERS: ADMIT Surgery; ATTEND Surgery
DX: R10.31 Right lower quadrant pain (principal); Z79.3 Long term (current) use of hormonal contraceptives